=== PATIENT | male | born 1935 | race African-American/Black ===

== ENCOUNTER → 2018-10-30 | Outpatient (CLI) | payer MEDICARE ==
--- NOTE | 2018-10-30 15:52 | KCIC ---
EXAM: Head CT without contrast. HISTORY: Alzheimer's disease. TECHNIQUE: Computed tomographic images of the head were obtained without contrast. *One or more of the following individualized dose reduction techniques were utilized for this examination: 1. Automated exposure control. 2. Adjustment of the mA and/or kV according to patient size. 3. Use of iterative reconstruction technique. COMPARISON: None. FINDINGS: There is no acute or subacute extra-axial or intraparenchymal hemorrhage. There is no mass effect or midline shift. There is no hydrocephalus. There are areas of decreased attenuation within the cerebral white matter, nonspecific and likely related to chronic small vessel disease. There is hypodensity likely due to encephalomalacia within the right parieto-occipital junction, likely due to chronic infarction. There is ex vacuo dilatation of the adjacent occipital horn of the right lateral ventricle. There is also a suspected small chronic infarct within the right frontal lobe. There is cerebral volume loss. There is suspected bilateral maxillary sinus wall thickening, possibly due to the sequela of chronic sinusitis. There is a tiny right maxillary sinus mucous retention cyst. The mastoid air cells are clear. IMPRESSION: 1. No acute intracranial finding. Note is made that MRI is more sensitive for acute infarction. 2. 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 3. Scattered areas of hypodensity within the cerebral white matter, likely due to chronic small vessel disease. 4. Cerebral atrophy. Electronically signed by: Antoinette Rodriguez MD (10/30/2018 3:47 PM) [id number]
== END | disposition home or self-care (01) ==
LOC: KCIC CT 15:03
PROVIDERS: ATTEND Psychiatry & Neurology Neurology with Special Qualifications in Child Neurology
DX: G30.9 Alzheimer's disease, unspecified (principal); G31.9 Degenerative disease of nervous system, unspecified
CPT/HCPCS: 70450